=== PATIENT | male | born 1960 | race African-American/Black ===

== ENCOUNTER 2019-06-01 16:53 | Inpatient (IN) | payer MEDICAID ==
[~2019-06-01] VITALS: Ht 152.4 cm; Wt 52.2 kg
--- NOTE | 2019-06-01 16:54 | NUR ---
Patient BIBA ALS accompanied by Liban delgado 183, transferred to bed 7. RN evaluating patient at bedside.
--- NOTE | 2019-06-01 16:59 | NUR ---
TONIC CLONIC SEIZURE WITNESSED LASTING 1 MIN, 47 SECONDS. PT ON SIDE, SIDE RAILS UP, PADDING ON SIDERAILS. SUCTION AT BEDSIDE.
--- NOTE | 2019-06-01 17:02 | NUR ---
TONIC CLONIC SEIZURE WITNESSED LASTING 2MINUTES. PT ON SIDE, SIDE RAILS UP, PADDING ON SIDERAILS. SUCTION AT BEDSIDE.
--- NOTE | 2019-06-01 17:02 | NUR ---
SEIZURE PRECAUTIONS IN PLACE
[2019-06-01 17:03] VITALS: BP 151/71
--- NOTE | 2019-06-01 17:05 | NUR ---
INFORMED DR MTZ OF PTS SEIZURE
--- NOTE | 2019-06-01 17:08 | NUR ---
DANIELLE FROM [facility]
[2019-06-01] MEDS ORDERED: NACL 0.9% 1,000 ML IV SCH (17:44)
--- NOTE | 2019-06-01 17:45 | NUR ---
59 Y/M BIBA POSTICTAL FROM [facility]. SEIZURE WAS WITNESSED BY FACILITY AND LASTED ABOUT 1 MIN, 30 SECS, PT THEN HAD ANOTHER SIZURE A FEW MINUTES AFTER. PT WAS LAST SEEN WELL AT 1500. PER EMS PT DOES NOT HAVE HX OF SEIZURES. PT CONFUSED AND NONVERBAL. PERLLA INTACT, RR EVEN, PT LYING SUPINE, B HIPS AND KNEES CONTRACTED. EXPIRATORY WHEEZING. SKIN WARM AND MOIST. HX- CKD, COPD, ANXIETY, PANCREATITIS, PSYCHOSIS, GERD, DYSPHAGIA.
--- NOTE | 2019-06-01 17:50 | NUR ---
EKG AT BEDSIDE.
--- NOTE | 2019-06-01 17:50 | NUR ---
XR AT BEDSIDE.
[2019-06-01] MEDS ORDERED: LORazepam 2 MG/ML VIAL ONE (17:58)
[2019-06-01] MEDS ORDERED: LORazepam 2 MG/ML VIAL IVP ONE ×2 (18:00)
--- NOTE | 2019-06-01 18:30 | NUR ---
PT EXTREMELY AGITATED. MUMBLING. SWINGING ARMS. ATTEMPTING TO BITE
--- NOTE | 2019-06-01 18:31 | NUR ---
PT REPETIVELY VOMITING BROWN EMESIS, PT BEING SUCTIONED AT BEDSIDE
--- NOTE | 2019-06-01 18:34 | NUR ---
EJ REMOVED, SITE SWOLLEN
--- NOTE | 2019-06-01 18:40 | NUR ---
G-TUBE CONNECTED TO LOW CONTINUOUS SUCTION, DR. CHAPIN MADE AWARE.
--- NOTE | 2019-06-01 18:48 | NUR ---
PT HAS SUPRAPUBIC MAYO IN PLACE Addendum: 06/01/19 at 1849 by [email or web address] PLACED PRIOR TO ARRIVAL TO ER
--- NOTE | 2019-06-01 18:52 | NUR ---
UNABLE TO OBTAIN IV ASCESS, DR MTZ NOTIFIED
[2019-06-01] MEDS ORDERED: LORazepam 2 MG/ML VIAL IM ONE ×3 (18:55→20:35)
--- NOTE | 2019-06-01 19:01 | NUR ---
ATIVAN IM ADMINISTERED
--- NOTE | 2019-06-01 19:16 | NUR ---
Pt report given to JANES JENKINS. Transfer of care at this time.
--- NOTE | 2019-06-01 19:20 | NUR ---
Dr. Méndez examining patient.
--- NOTE | 2019-06-01 19:26 | NUR ---
PT TAKEN TO CT
--- NOTE | 2019-06-01 19:30 | NUR ---
ASSUMED CARE OF PT AT THIS TIME. PT RESTING IN BED. PT TRIP FROM SNF FOR SZ. PT HAD 2 SZ AROUND 4PM PER FACILITY. PT UNABLE TO ANSWER QUESTIONS. PT HAVING ONLY MUMBLING. PT ABLE TO OPEN EYES AND LOOK NURSE. PT VSS. PT HAS GI TUBE AND SUPRA PUBIC CATH. CALLED FACILITY PT WAS FROM. NURSE STATES PRIMARY NURSE IS UNABLE TO SPEAK BECAUSE SHE IS ON BREAK. PT TAKEN TO CT AT THIS TIME.
--- NOTE | 2019-06-01 19:31 | NUR ---
PT WAS COMBATIVE AND AGITATED FOR DAY SHIFT NURSE, PT WAS GIVEN 2MG OF ATIVAN. PT CALM AT THIS TIME. DAY SHIFT NURSE ATTEMPT MULTIPLE TIME FOR IV ACCESS UNABLE. DR. DENTON STATES SHE WILL START CENTRAL LINE FOR PT.
--- NOTE | 2019-06-01 19:50 | NUR ---
PT BACK FROM CT
--- NOTE | 2019-06-01 19:50 | NUR ---
Taurus bailey in [facility] - 06/01/19 at 2003 by JUAN PT RETURN FROM CT
[2019-06-01 20:14] LABS: APPEARANCE,URINE CLOUDY (CLEAR); BILIRUBIN,URINE NEGATIVE (NEGATIVE); BLOOD, URINE 3+ (NEGATIVE); LEUKOCYTE ESTERASE ,URINE 2+ (NEGATIVE); NITRITE, URINE NEGATIVE (NEGATIVE); PH,URINE 8.5 (5.0-9.0); UGLUCOSE NEGATIVE (NEGATIVE)
--- NOTE | 2019-06-01 20:15 | NUR ---
ROOM SET UP FOR CENTRAL LINE FOR DR. DENTON
[2019-06-01 20:19] LABS: COLOR,URINE YELLOW (YELLOW)
[2019-06-01 20:24] LABS: RBC,URINE 50-80 /HPF (0-5); WBC,URINE TOO MANY TO COUNT /HPF (0-5)
--- NOTE | 2019-06-01 20:32 | NUR ---
SPOKE WITH JONAS MARRERO FROM [facility]. JONAS STATES PT ISNORMALLY ABLE TO SPEAK AND TELL YOU HIS NAME. JONAS ALSO STATES PT WILL SAY THINGS THAT ARE VERY AGRESSIVE SUCH "I WILL KILL YOU" PT DOES NOT KNOW THE DATE OR PRESIDENT OF [facility]. PT IS NORMALLY CONFUSED AT BASELINE. PT HAS G TUBE BECAUSE PT WAS NOT EATING. PT HAS THE SUPRAPUBIC CATH BECAUSE "HE CAN NO URINATE WITH OUT IT" PER JONAS MARRERO.
--- NOTE | 2019-06-01 20:34 | NUR ---
Taurus bailey in [facility] - 06/01/[address] Méndez at [facility]
--- NOTE | 2019-06-01 20:35 | NUR ---
CORRIE TOTH AT BEDSIDE. DR. DENTON ASSESSING IF PT WILL SIT STILL FOR CENTRAL LINE. PT SILL MOVING AND UNABLE TO SIT FOR CENTRAL. DR. DENTON ORDER 2 MG OF ATIVAN.
--- NOTE | 2019-06-01 20:56 | NUR ---
PT STILL PULLING AWAY , UNABLE TO ATTEMPT CENTRAL LINE.
[2019-06-01] MEDS ORDERED: HALOPERIDOL IM 5 MG/ML VIAL IM ONE (21:00)
--- NOTE | 2019-06-01 21:44 | NUR ---
DR. DENTON AT BEDSIDE FOR PROCEDURE
--- NOTE | 2019-06-01 21:49 | NUR ---
CENTRAL LINE PLACED BY DR. DENTON. RIGHT SUBCLAVIAN.
--- NOTE | 2019-06-01 22:00 | NUR ---
PT APPEARS TO BE IN NO DISTRESS. RESTING COMFORTABLY IN BED. NO CHANGES FROM PREVIOUS ASSESSMENT.
[2019-06-01 23:09] LABS: BASOPHILS % (AUTO) 0.1 % (0.0-2.0); HEMATOCRIT 34.1 % (36-52); HEMOGLOBIN 11.6 g/dL (12.0-18.0); LYMPHOCYTES # (AUTO) 0.4 K/uL (2.0-11.5); MEAN CORPUSCULAR HEMOGLOBIN 32 pg (27-31); MEAN CORPUSCULAR HGB CONC 34 g/dL (33-37); MEAN CORPUSCULAR VOLUME 92.4 fL (80-94); MONOCYTES # (AUTO) 0.5 K/uL (0.8-1.0); MONOCYTES % (AUTO) 7.1 % (1.7-9.3); NEUTROPHILS # (AUTO) 6.8 K/uL (1.8-7.7); NEUTROPHILS % (AUTO) 87.4 % (42.2-75.2); PLATELET COUNT (AUTO) 84 K/uL (140-450); RED BLOOD CELL COUNT(AUTO) 3.69 MIL/uL (4.20-6.10); WHITE BLOOD COUNT (AUTO) 7.7 K/uL (4.8-10.8)
[2019-06-01] MEDS ORDERED: NACL 0.9% 1,000 ML IV ONE ×2 (23:10→23:50)
[2019-06-01] MEDS ORDERED: PANTOPRAZOLE 40 MG INJ VIAL IVP ONE (23:10)
[2019-06-01 23:28] LABS: PROTHROMBIN TIME 11.1 secs (10.8-13.4)
[2019-06-01 23:35] LABS: ALBUMIN 3.4 g/dL (3.4-5.0); ANION GAP 11.5 (8-16); CARBON DIOXIDE 28.3 mmol/L (21-32); CREATININE 1.2 mg/dL (0.6-1.3); POTASSIUM 3.8 mmol/L (3.5-5.1); TOTAL BILIRUBIN 0.5 mg/dL (0.0-1.0)
--- NOTE | 2019-06-01 23:35 | NUR ---
DR. DENTON CONFIRM THAT CENTRAL LINE IN PLACE OK TO GIVE MEDICATIONS.
[2019-06-01 23:38] LABS: LYMPHOCYTES % (AUTO) 5.4 % (20.5-51.1)
[2019-06-01] MEDS ORDERED: DEXTROSE 50% 50 ML SYR IVP ONE (23:40)
[2019-06-01] MEDS ORDERED: cefTRIAXone 1,000 MG VIAL ONE (23:41)
--- NOTE | 2019-06-02 | NUR ---
PT APPEARS TO BE IN NO DISTRESS AT THIS TIME. VSS. WILL CONTINUE TO MONTIOR.
[2019-06-02] MEDS ORDERED: ACET-2619 GT (00:57)
[2019-06-02] MEDS ORDERED: DETLA4 GT (00:57)
[2019-06-02] MEDS ORDERED: VALP-22 GT (00:57)
[2019-06-02] MEDS ORDERED: LORazepam 2 MG/ML VIAL IVP PRN (01:20)
[2019-06-02] MEDS ORDERED: DEXTROSE 50% 50 ML SYR IVP SCH (02:15)
--- NOTE | 2019-06-02 02:20 | NUR ---
PT BLODO SUGAR ARE LOW. LAST BS 85. DR. DENTON AWARE ONE AMP OF D50 GIVEN. PT TAKEN TO ROOM 124B. JANES CONTRERAS ASSUMED CARE OF PT.
--- NOTE | 2019-06-02 02:20 | NUR ---
RECEIVED PT, AWAKE,X 1 CONFUSED BEDBEOUND, CONTRACTED LE. PATIENT ON G TUBE, STILL WITH REMNANTS/ EVIDENCE OF OF COFFEE GROUND EMESIS EARLIER AT THE ED. WILL CHECK ON TUBE. HX AND PHYSICAL DONE. MRSA SWAB DONE. WILL TAKE BS READING. PLACED ON FALL RISK PRECAUTION. SEIZURE PRECAUTION. WILL CONTINUE TO MONITOR.
--- NOTE | 2019-06-02 02:40 | NUR ---
WHILE WAITING FOR ODER OF AND FOR THE VERIFICATION OF PHAR,ACY FOR ACETAMINOPHEN, COOLING MEASURES DONE, W. COLD COMPRESS UNDER BOTH ARMPITS
--- NOTE | 2019-06-02 03:00 | NUR ---
TOOK PT'S VITALS AND BS= 50, WILL ADMINISTER 2ND DOSE OF D50 IV ; BP= 128/87; 113; 96 %; 100.5 TEMP, FEBRILE. DR. MUNSON INFORMED AND ORDERED ME TO GIVE EXISTING D50 AND SAID SHE WILL ORDER ACETAMINOPHEN 650 MG
[2019-06-02] MEDS ORDERED: NACL 0.9% 1,000 ML IV SCH (03:06)
[2019-06-02] MEDS ORDERED: DOCUSATE SODIUM 100 MG GELCAP PO PRN (03:10)
[2019-06-02] MEDS ORDERED: ACETAMINOPHEN 325 MG TAB PO PRN (03:10)
[2019-06-02] MEDS ORDERED: MORPHINE SULFATE 2 MG/ML SYR IVP PRN (03:10)
[2019-06-02] MEDS ORDERED: ONDANSETRON 4 MG/2 ML VIAL IM/IVP PRN (03:10)
[2019-06-02] MEDS ORDERED: DEXTROSE 50% 50 ML SYR IVP ONE (03:50)
[2019-06-02] MEDS ORDERED: DEXT 5% / NACL 0.9% 500 ML IV SCH ×2 (03:50→05:25)
[2019-06-02] MEDS ORDERED: ACETAMINOPHEN 325 MG TAB ONE (03:57)
[2019-06-02 04:02] LABS: MAGNESIUM 2.1 mg/dL (1.8-2.4); PHOSPHORUS 1.9 mg/dL (2.5-4.9); THYROID STIMULATING HORMONE 2.26 uIU/mL (0.34-3.74)
--- NOTE | 2019-06-02 04:05 | NUR ---
AT [facility], TYPO ERROR FOR ACETAMINOPEHNE INSTEAD OF 600 MG, SHOULD BE 600 MG. PLEASE TAKE NOTE, ADMINSITERED 650 MG ORDERED (2 TABS) 325 MG EACH Addendum: 06/02/19 at 0436 by Beatriz Mart RN SHOULD BE 650 MG AND NOT 600MG.
[2019-06-02] MEDS ORDERED: ALBUTEROL SULFATE/IPRATROPIU 3 ML SOL IH PRN (04:20)
--- NOTE | 2019-06-02 04:30 | NUR ---
VERIFIED W/ DR. GAN W/C IVF TO BE GIVEN WITH BLOOD SUGAR ALREADY 178 MG.DL. , SAID SHE WILL DECREASE THE D5NS RATE, AND THAT NS IVF WILL BE D/C
--- NOTE | 2019-06-02 04:32 | NUR ---
SPOKE TO EVONNE OF PHARMACY, INFORMED HER THAT MEDS NEEDS TO BE VERIFIED, URGENT PLEASE
--- NOTE | 2019-06-02 04:51 | NUR ---
BLOOD SUGAR OF PATIENT IS 178MG/DL= NON ADMINISTERED D50% 3RD DOSE, DR. MARSH AWARE
--- NOTE | 2019-06-02 05:01 | NUR ---
CHECKED ON THE ORDERS FOR IVF DR. TAYLOR D/C D5NS AT CONTINUED THE NS AT 60 ML/HR. WILL CARRY IT OUT
[2019-06-02] MEDS: PANTOPRAZOLE 40 MG INJ VIAL IVP SCH ×3 (05:19→23:27)
--- NOTE | 2019-06-02 05:20 | NUR ---
TAYLER TOTH ORDERED CHANGE OF IVF BACK TO D5 NS DUE TO COFFE GROUND EMESIS VOMITUS EARLIER AT ED. RETURNED THE NS ABD D5 NS TAKEN AT [facility]
--- NOTE | 2019-06-02 05:30 | NUR ---
DR CABRERA ORDERED HOLD TF FOR NOW
[2019-06-02] MEDS: DEXT 5% /NACL 0.9% 1,000 ML IV SCH (07:20)
--- NOTE | 2019-06-02 07:30 | NUR ---
RECEIVED PT FROM FAN BLADE ALIGNER NURSE. PT IS IN STABLE CONDITION, ASLEEP, NO DISTRESS NOTED. AOX0, RESPIRATION ARE EVEN AND UNLABORED ON ROOM AIR. G-TUBE IN PLACE AND NPO STATUS. SKIN INTACT LOWER EXTREMITIES CONTRACTED. IV IN PLACE, R IJ TRIPLE LUMEN PATENT AND ASYMPTOMATIC INFUSING PER ORDER. SUPRAPUBIC CATHETER IN PLACE. SAFETY MEASURES IN PLACE. CALL LIGHT WITHIN REACH, BED IN LOW POSITION AND WILL CONTINUE TO MONITOR.
[2019-06-02 07:55] LABS: BASOPHILS % (AUTO) 0.1 % (0.0-2.0); EOSINOPHILS % (AUTO) 0.1 % (0.0-4.0); HEMATOCRIT 32.2 % (36-52); HEMOGLOBIN 10.9 g/dL (12.0-18.0); LYMPHOCYTES # (AUTO) 1.1 K/uL (2.0-11.5); LYMPHOCYTES % (AUTO) 18.2 % (20.5-51.1); MEAN CORPUSCULAR HEMOGLOBIN 32 pg (27-31); MEAN CORPUSCULAR HGB CONC 34 g/dL (33-37); MONOCYTES # (AUTO) 0.5 K/uL (0.8-1.0); MONOCYTES % (AUTO) 8.2 % (1.7-9.3); NEUTROPHILS # (AUTO) 4.6 K/uL (1.8-7.7); NEUTROPHILS % (AUTO) 73.4 % (42.2-75.2); PLATELET COUNT (AUTO) 85 K/uL (140-450); RED BLOOD CELL COUNT(AUTO) 3.46 MIL/uL (4.20-6.10); RED CELL DISTRIBUTION WIDTH 12.6 % (11.6-13.7); WHITE BLOOD COUNT (AUTO) 6.3 K/uL (4.8-10.8)
[2019-06-02 08:00] VITALS: BP 118/75
[2019-06-02 09:00] LABS: ANION GAP 9.3 (8-16); CARBON DIOXIDE 28.4 mmol/L (21-32); CREATININE 1.3 mg/dL (0.6-1.3); POTASSIUM 3.7 mmol/L (3.5-5.1)
[2019-06-02] MEDS ORDERED: TOLTERODINE LA 4 MG CAPER PO SCH (09:00)
--- NOTE | 2019-06-02 09:03 | NUR ---
PATIENT HAS BEEN SCREENED AND CATEGORIZED HIGH NUTRITION RISK. PATIENT WILL BE SEEN WITHIN 1-2 DAYS OF ADMISSION. 06/02/19-06/03/[address]
[2019-06-02] MEDS: VALPROIC ACID 250 MG/5 ML UDC GT SCH ×2 (10:14→23:26)
--- NOTE | 2019-06-02 10:28 | NUR ---
ADMINISTERED MEDICATION PER ORDER. PATIENT IS AWAKE AND IN BED, COMBATIVE UNWILLING TO BE CHANGED AND CLEANED. NO COMPLAINTS OF PAIN. SAFETY MEASURES IN PLACE, CALL LIGHT WITHIN REACH. WILL CONTINUE TO MONITOR.
--- NOTE | 2019-06-02 11:10 | NUR ---
DC PLANNIN YRS OLD MALE PATIENT WAS ADMITTED FROM [facility] WITH A DX OF NEW ONSET OF SEIZURE. PT HAS A HX OF COPD, MENTALLY CHALLENGE ,DEMENTIA WITH BEHAVIORAL DISTURBANCE, CHRONIC KIDNEY DISEASE ,KIDNEY STONE AND GERD. ORDERED EEG, AND NEURO CONSULT WITH DR WARNER. PT HAS COFFEE GROUND DRAINAGE IN THE G-TUBE CONSULT WITH DR CURRY. CONTINUE HOME MEDS, IVF ,IV ROCEPHIN ,BLOOD AND URINE CULTURE PENDING. DC PLAN TO GO BACK TO [facility] WHEN STABLE CM TO FOLLOW. Addendum: 06/04/19 at 1424 by Velia Kinsey CM DC PLANNING: PT HAS A DC ORDER TO GO BACK TO SNF .CALLED [facility] SPOKE WITH ANDRIA PT CAN GO TO ROOM 203A ,[facility] WITH [facility] [phone] REFERENCE # [id number] ARRANGED WITH [employer] CHEMICAL CHECKER TIME 6PM NOTIFIED GEORGI MARRERO.
[2019-06-02 12:00] VITALS: BP 125/68
--- NOTE | 2019-06-02 13:12 | NUR ---
PT IN BED ASLEEP, NO DISTRESS NOTED, RESPIRATIONS EVEN AND UNLABORED ON ROOM AIR. SAFETY MEASURES IN PLACE, CALL LIGHT WITHIN REACH. WILL CONTINUE TO MONITOR.
--- NOTE | 2019-06-02 14:04 | NUR ---
Port Surveyor Note: Basic Screen: Yes High Risk DC Screen [place]: [facility] Home Relationship: HEALTHCARE DECISION MAKER Pre-Admission Living Arrangements: SNF Prior ADL Needs Assistance Current Home Health Name/Tel: N/A Current DME/02 Name/Tel: [employer] Current Hospice Name/Tel: N/A Current Dialysis Name/Tel: N/A Healthcare Decision Maker: Community/disease case manager rn Other: [facility] Advance Directive No Physician Orders for Life Sustaining Treatment Form No Patient/Family Have Educational Needs No Discipline: Case Mgt/Social Svcs Tentative Discharge Plan/Destination: SNF/ECF Will require assistance post discharge: No Referred to Radio Presenter: No Tentative Discharge Plan Summary: Patient is a 59-year-old male admitted for new onset seizures. Patient has PMHX of COPDm, intellectual disability, dementia w/ behavioral disturbances, occasional psychosis, chronic kidney disease, kidney stones, GERD, dysphagia, contractures, and general anxiety. SW contacted Adeola in medical records at [facility]. Per Adeola, patient is assisted, and is currently on a bed hold. Adeola stated that patient can make needs known but cannot make medical decisions. Adeola stated that Manisha Saldaña is patient's healthcare decision maker. Tentative discharge plan is for patient to return to [facility]. No further needs identified. Signature: ANTONELLA Gordon Date: Jun 02, 2019 Time: 14:01
--- NOTE | 2019-06-02 15:31 | NUR ---
CONSENT FOR EGD IN PT CHART, CONSENT RECEIVED FROM DR PENA AT [facility] BY RESIDENT DR GIRON SINCE PT UNABLE TO SIGN. TWO DR CONSENT DONE.
--- NOTE | 2019-06-02 15:42 | NUR ---
06/02/19 INITIAL ASSESSMENT COMPLETED PLEASE REFER TO NUTRITION ASSESSMENT UNDER CARE ACTIVITY FOR ESTIMATED NUTRITIONAL NEEDS. 1. CONTINUE NPO MEDICALLY APPROPRIATE 2. IF/WHEN MEDICALLY STABLE, RECOMMEND JEVITY 1.2 @ 45 ML/HR. -THIS PROVIDES 1296 KCALS AND 60 GM PROTEIN. THIS IS MEETING >100% OF PTS CALORIC NEEDS AND >100% OF PTS PROTEIN NEEDS. -START RATE @ 25 ML/HR AND ADVANCE TOLERATED 3. FREE WATER FLUSH: [address] TO FOLLOW-UP 2-3 DAYS, HIGH RISK KAN LOPEZ RD
[2019-06-02 16:00] VITALS: BP 127/71
--- NOTE | 2019-06-02 17:42 | NUR ---
ASSISTED WOOD HEEL FLAP TRIMMER IN CLEANING PT. OCCULT BLOOD STOOL SAMPLE COLLECTED AT THIS TIME. PT IN STABLE CONDITION, RESPIRATIONS EVEN AND UNLABORED ON ROOM AIR. WILL CONTINUE TO MONITOR.
--- NOTE | 2019-06-02 19:20 | NUR ---
PT ENDORSED TO KILN STACKER FOR CONTINUITY OF CARE.
--- NOTE | 2019-06-02 19:21 | NUR ---
RECEIVED PT, AWAKE,X 1 CONFUSED BEDBOUND, CONTRACTED LE. PATIENT ON G TUBE, STILL WITH REMNANTS/ EVIDENCE OF OF COFFEE GROUND EMESIS. WILL CHECK ON G-TUBE. NPO AFTER MIDNIGHT FOR EGC IN THE AM TMRW. PLACED ON FALL RISK PRECAUTION. SEIZURE PRECAUTION. WILL CONTINUE TO MONITOR.
--- NOTE | 2019-06-02 19:22 | NUR ---
ASKED DR. CABRERA THAT THERE IS AN ORDER FOR A FEEDING, SAID TO GO ON WITH THE FEEDING, AND TO PUT PATIENT ON NPO.
[2019-06-02 20:00] VITALS: BP 92/55
--- NOTE | 2019-06-02 21:00 | NUR ---
PT TOLERATED MEDS, G TUBE WITH DARK EMESIS STILL PRESEMT, FLUSHED AND GAVE THE MEDS.
--- NOTE | 2019-06-02 21:46 | NUR ---
RECEIVED PATIENT ON ROOM AIR, PULSE OX SAT 98%. NO SOB NOTED AT THIS TIME. PRN HHN NOT INDICATED. PT MADE AWARE OF ORDERED MEDICATION FREQUENCY AND INSTRUCTED TO CALL NEEDED FOR SOB. NO ACUTE RESPIRATORY DISTRESS NOTED AT THIS TIME. WILL CONTINUE TO MONITOR.
[2019-06-02] MEDS: FERROUS SULFATE 300 MG/5 ML UDC GT SCH (23:26)
[2019-06-02] MEDS: LACTULOSE 20 GM/30 ML UDC PO SCH (23:27)
[2019-06-03] VITALS: BP 110/60
--- NOTE | 2019-06-03 01:00 | NUR ---
PT SLEEPING, BUT EASILY AWAKENED, PT SHOUTS AND REFUSED TO BE TURNED AND WILL COME BACK LATER.
--- NOTE | 2019-06-03 01:45 | NUR ---
PT TURNED AND CLEANED WITH 1 BIG BM, CHANGED GOWN
--- NOTE | 2019-06-03 02:40 | NUR ---
PT SLEEPING AT THIS TIME, NO VOMOTING NOTED NO RESPIRATORY DISTRESS, WILL CONTINUE TO MONITOR
[2019-06-03] MEDS: DEXT 5% /NACL 0.9% 1,000 ML IV SCH ×2 (03:20→23:20)
[2019-06-03 04:00] VITALS: BP 110/60
--- NOTE | 2019-06-03 05:13 | NUR ---
PT REFUSED LABS PER LAYOUT MECHANIC
[2019-06-03 08:00] VITALS: BP 126/69
[2019-06-03] MEDS: FERROUS SULFATE 300 MG/5 ML UDC GT SCH ×2 (09:00→20:35)
[2019-06-03] MEDS ORDERED: VALPROIC ACID 250 MG/5 ML UDC GT ONE (09:00)
[2019-06-03] MEDS: VALPROIC ACID 250 MG/5 ML UDC GT SCH ×2 (09:00→20:35)
[2019-06-03] MEDS: LACTULOSE 20 GM/30 ML UDC PO SCH ×2 (09:00→20:35)
[2019-06-03] MEDS: ASCORBIC ACID 500 MG/5 ML ORASYR GT SCH (09:00)
[2019-06-03] MEDS: TOLTERODINE LA 4 MG CAPER PO SCH (09:01)
[2019-06-03] MEDS: SENNA 8.6 MG TAB PO SCH (09:01)
[2019-06-03 09:06] LABS: TRANSFERRIN 219 mg/dL (200-370)
--- NOTE | 2019-06-03 09:40 | NUR ---
PATIENT REFUSING EKG WITH HAND MOTION TOWARDS FIELD ARTILLERY OPERATIONS MAN WITH ANGERED LOOK ABDOUL/RN NOTIFIED
--- NOTE | 2019-06-03 09:42 | NUR ---
PATIENT REFUSING ASSESSMENT BY SENIOR SYSTEMS SOFTWARE ENGINEER IE: BREATH SOUND AUSCULTATION BILATERAL, ENGAGEMENT OF PULSE OXIMETER FOIR DETERMING SATURATION AND HEART RATE
[2019-06-03 10:09] LABS: BASOPHILS % (AUTO) 0.2 % (0.0-2.0); EOSINOPHILS # (AUTO) 0.1 K/uL (0-0.4); HEMATOCRIT 32.5 % (36-52); LYMPHOCYTES # (AUTO) 0.8 K/uL (2.0-11.5); MEAN CORPUSCULAR HEMOGLOBIN 32 pg (27-31); MEAN CORPUSCULAR HGB CONC 34 g/dL (33-37); MEAN CORPUSCULAR VOLUME 92.8 fL (80-94); MONOCYTES # (AUTO) 0.6 K/uL (0.8-1.0); MONOCYTES % (AUTO) 12.5 % (1.7-9.3); NEUTROPHILS % (AUTO) 67.3 % (42.2-75.2); PLATELET COUNT (AUTO) 91 K/uL (140-450); RED BLOOD CELL COUNT(AUTO) 3.51 MIL/uL (4.20-6.10); RED CELL DISTRIBUTION WIDTH 12.7 % (11.6-13.7); WHITE BLOOD COUNT (AUTO) 4.5 K/uL (4.8-10.8)
[2019-06-03 10:20] LABS: ANION GAP 7.6 (8-16); CARBON DIOXIDE 29.3 mmol/L (21-32); CREATININE 1.1 mg/dL (0.6-1.3); POTASSIUM 3.9 mmol/L (3.5-5.1)
[2019-06-03 10:25] LABS: MAGNESIUM 2.1 mg/dL (1.8-2.4); PHOSPHORUS 1.8 mg/dL (2.5-4.9)
[2019-06-03] MEDS: PANTOPRAZOLE 40 MG INJ VIAL IVP SCH ×2 (10:33→20:35)
[2019-06-03 12:00] VITALS: BP 119/62
--- NOTE | 2019-06-03 12:00 | NUR ---
PATIENT RESTING IN ROOM - NO COMPLAINTS OR CONCERNS- SOON TO HAVE EGD- NRS ON TELE- VITALS STABLE - WILL CONTINUE TO MONITOR REPORT AND RECORD
[2019-06-03 12:22] LABS: FERRITIN 35 ng/mL (30-400); FOLIC ACID > 20.00 ng/mL (>3.0)
[2019-06-03] MEDS ORDERED: SODIUM PHOS / POTASSIUM PHOS 1 PKT PDR PO SCH (13:00)
[2019-06-03] MEDS ORDERED: fentaNYL 0.05 MG/ML VIAL ONE (13:09)
[2019-06-03] MEDS ORDERED: MIDAZOLAM 2 MG/2 ML VIAL ONE (13:10)
--- NOTE | 2019-06-03 14:10 | NUR ---
PATIENT HAS RETURNED TO UNIT
--- NOTE | 2019-06-03 15:25 | NUR ---
PT. ADMITTED WITH LOW FARIBA SCALE AT RISK,CONTINUE TO FOLLOW PRESSURE ULCER PREVENTION INTERVENTIONS. -TURN AND REPOSITION PATIENT Q 2H -ASSESS AND MONITOR SKIN CONDITION DURING POSITION CHANGE -OFFLOAD BILATERAL HEELS BY PLACING PILLOWS UNDER CALVES AT ALL TIMES, UNLESS OTHERWISE CONTRAINDICATED -PRESSURE REDISTRIBUTION BY PLACING PILLOWS AND OFFLOADING SACRALCOCCYX -KEEP SKIN CLEAN AND DRY AT ALL TIMES.
[2019-06-03 16:00] VITALS: BP 110/78
--- NOTE | 2019-06-03 18:31 | NUR ---
WILL ENDORSE CARE TO PM RN - VITALS STABLE - SAFETY PRECAUTIONS IN PLACE - PATIENT RESTING IN ROOM WITH OUT CONCERNS OR DISCOMFORT- PATIENT TB HAVE RESUMED- TOLERATING WELL - WILL CONTINUE TO MONITOR REPORT AND RECORD
--- NOTE | 2019-06-03 19:24 | NUR ---
RECIEVED PT AAOX1 , RESPONDING BY EYE CONTACT WHEN CALLING HIS NAME - NID - RA , ON 3 LUMEN CENTTRAL LINE ON R NECK INTACT AND PATENT , ON G TUBE - TOLERATED WELL , ON SUPRABIC CATH CONNECTING TO URINE BAG DRAINING CLAER U.O , ON S2 PRECAUTION , ON SAFETY / FALL PRECAUTION PROTOCOL , POC DISCUSSED BUT POOR UNDERSTANDING DUE TO MENTAL STATUS . WILL CONT. TO MONITOR.
[2019-06-03 20:00] VITALS: BP 124/72
--- NOTE | 2019-06-03 22:00 | NUR ---
MADE ROUNDS , NO S/S OF ACUTE DISTRESS NOTED AT THIS TIME . WILL CONT. TO MONITOR.
[2019-06-04] VITALS: BP 122/70
--- NOTE | 2019-06-04 | NUR ---
MADE ROUNDS , RESP. EVEN AND UNLABORED . WILL CONT. TO MONITOR.
--- NOTE | 2019-06-04 02:00 | NUR ---
MADE ROUNDS - SLEEPING - CHEST RISE AND FALL EVEN AND EQUALLY . WILL CONT. TO MONITOR.
[2019-06-04 04:00] VITALS: BP 122/65
--- NOTE | 2019-06-04 04:29 | NUR ---
MADE ROUNDS , RESTING ON BED COMFORTABLY . NO SIGNS OF ACUTE DISTRESS NOTED AT THIS TIME. WILL CONT. TO MONITOR.
[2019-06-04] MEDS: DEXT 5% /NACL 0.9% 1,000 ML IV SCH (05:55)
--- NOTE | 2019-06-04 07:15 | NUR ---
RECEIVED REPORT FROM NIGHT NURSE FOR CONTINUITY OF CARE, PT IS STABLE, PT IS AA0X2, PT ABLE TO VERBALIZED NEEDS, PT REFUSED LABS THIS AM, PT HAS RIGHT EXTERNAL JUGULAR 3-LUMEN CENTRAL LINE, INFUSING D5NS AT 50ML/H, PT HAS G-TUBE INFUSING JEVITY 1.2 AT 45ML/H WITH WATER FLUSH OF 70 Q4H, PT HAS SUPRAPUBIC CATHETER WITH LIGHT RADHA URINE, SAFETY MEASURES IN PLACE, INTRODUCE SELF, UPDATED WHITEBOARD, WILL CONTINUE TO MONITOR.
[2019-06-04 08:00] VITALS: BP 126/65
[2019-06-04] MEDS: VALPROIC ACID 250 MG/5 ML UDC GT SCH (09:43)
[2019-06-04] MEDS: FERROUS SULFATE 300 MG/5 ML UDC GT SCH (09:43)
[2019-06-04] MEDS: SENNA 8.6 MG TAB PO SCH (09:44)
[2019-06-04] MEDS: ASCORBIC ACID 500 MG/5 ML ORASYR GT SCH (09:44)
[2019-06-04] MEDS: LACTULOSE 20 GM/30 ML UDC PO SCH (09:44)
[2019-06-04] MEDS: TOLTERODINE LA 4 MG CAPER PO SCH (09:44)
[2019-06-04] MEDS: PANTOPRAZOLE 40 MG INJ VIAL IVP SCH (09:45)
--- NOTE | 2019-06-04 09:59 | NUR ---
ADMINISTERED ORDERED MEDICATION, PT EDUCATION GIVEN, PT IS STABLE, PT IS CONFUSED AND KEEPS ASKING ABOUT HIS CAR, PT NEEDS RE-DIRECTION, PT TOLERATED MEDICATION WELL, CALL LIGHT WITHIN REACH.
--- NOTE | 2019-06-04 11:00 | NUR ---
PT IS STABLE, RESTING IN ROOM, PT AWAKE, NO SIGNS OF DISTRESS NOTED, SAFETY MEASURES IN PLACE.
[2019-06-04] MEDS ORDERED: CEPH250C16 PO (11:48)
[2019-06-04 12:00] VITALS: BP 135/69
[2019-06-04] MEDS ORDERED: SULF-58 PO (12:25)
[2019-06-04] MEDS ORDERED: LACT10CA1 PO (12:32)
--- NOTE | 2019-06-04 13:10 | NUR ---
PT RESTING IN BED, NO SIGNS OF DISTRESS NOTED, CALL LIGHT WITHIN REACH.
--- NOTE | 2019-06-04 15:00 | NUR ---
PT RESTING IN BED, PT IS STABLE, SAFETY MEASURES IN PLACE.
[2019-06-04 16:00] VITALS: BP 117/54
--- NOTE | 2019-06-04 17:50 | NUR ---
PT DISCHARGED FROM THE HOSPITAL, FLU AND PNA VACCINE UP TO DATE, PT STABLE, PT TAKEN TO SNF BY MARINA,
== END 2019-06-04 17:50 | DRG 253 ==
LOC: MED 16:53 → MTU 06-02 01:17
PROVIDERS: ADMIT General Practice; ATTEND General Practice
PROC: 02HV33Z Insertion of Infusion Device into Superior Vena Cava, Percutaneous Approach (ICD-10-PCS; 2019-06-02)
PROC: B548ZZA Ultrasonography of Superior Vena Cava, Guidance (ICD-10-PCS; 2019-06-02)
PROC: 0D9630Z Drainage of Stomach with Drainage Device, Percutaneous Approach (ICD-10-PCS; principal; 2019-06-03 16:20)
DX: K92.0 Hematemesis (principal); D69.6 Thrombocytopenia, unspecified; F03.91 Unspecified dementia, unspecified severity, with behavioral disturbance; N31.9 Neuromuscular dysfunction of bladder, unspecified; F72 Severe intellectual disabilities; R13.10 Dysphagia, unspecified; N39.0 Urinary tract infection, site not specified; D63.8 Anemia in other chronic diseases classified elsewhere; G80.9 Cerebral palsy, unspecified; J44.9 Chronic obstructive pulmonary disease, unspecified; E86.0 Dehydration; E16.2 Hypoglycemia, unspecified; F41.1 Generalized anxiety disorder; K21.9 Gastro-esophageal reflux disease without esophagitis; I12.9 Hypertensive chronic kidney disease with stage 1 through stage 4 chronic kidney disease, or unspecified chronic kidney disease; N18.9 Chronic kidney disease, unspecified; Z93.1 Gastrostomy status; Z79.899 Other long term (current) drug therapy
CPT/HCPCS: 36415; 70450; 71045; 74018; 80048; 80053; 81001; 82272; 82607; 82728; 82746; 82948; 83036; 83540; 83605; 83690; 83735; 83874; 83880; 84100; 84134; 84443; 84484; 85025; 85045; 85610; 85730; 86886; 86900; 86901; 87040; 87081; 87086; 87186; 93005; 99291; C9113; J0696; J1630; J2060; J2250; J3010; J7030; J7042; J7060; Q0092